=== PATIENT | male | born 1995 | race Caucasian/White ===

== ENCOUNTER 2020-12-09 21:16 | Emergency (ER) | payer OTHER ==
--- NOTE | 2020-12-09 21:33 | ED Physician Documentation ---
PD HPI CHEST PAIN - Stated complaint Stated Complaint: CP - Chief complaint Chief Complaint: Resp - History obtained from History obtained from: Patient - History of Present Illness Timing - onset: How many hours ago (1) Timing - onset during: Rest (was just sitting at home and turned and noted onset sharp pain left anterior chest, worse with movement and breathing. No prior s imilar.) Timing - duration: Hours (1) Timing - details: Abrupt onset, Still present Quality: Aching, Sharp Location: Left chest Radiation: No: Back, Abdominal Improved by: Rest Worsened by: Inspiration, Movement, Palpation Associated symptoms: Shortness of air. No: Nausea, Vomiting, Feeling faint / dizzy, General Weakness Similar symptoms before: Has not had sx before Review of Systems Constitutional: denies: Fever, Chills Nose: denies: Rhinorrhea / runny nose, Congestion Throat: denies: Sore throat Respiratory: denies: Cough GI: denies: Abdominal Pain, Nausea, Vomiting Skin: denies: Rash Neurologic: denies: Generalized weakness, Near syncope, Altered mental status, Headache PD PAST MEDICAL HISTORY - Past Medical History Cardiovascular: None Respiratory: None Neuro: None Endocrine/Autoimmune: None - Present Medications Home Medications: Ambulatory Orders Medication Instructions Recorded Confirmed Ibuprofen [Motrin] 600 mg PO TID PRN #20 tab 12/09/20 tiZANidine [Zanaflex] 4 mg PO Q8H PRN #15 tablet 12/09/20 - Allergies Allergies/Adverse Reactions: Allergies Allergy/AdvReac Type Severity Reaction Status Date / Time amoxicillin Allergy Mild Hives Verified 12/09/20 21:22 - Social History Does the pt smoke?: No Does the pt have substance abuse?: No - Family History Family history: reports: Other (no connective tissue disorders.). denies: Sudden , Aortic aneursym, Aortic dissection PD ED PE NORMAL - Vitals Vital signs reviewed: Yes - General General: Alert and oriented X 3, Well developed/nourished, Other (appears in some discomfort with deep breathing and movement trunk) - HEENT HEENT: Moist mucous membranes, Pharynx benign - Neck Neck: Supple, no meningeal sign, No adenopathy - Cardiac Cardiac: No murmur. No: RRR (bradycardic but regular, which patient says is usual for him (HR 45-55). ) - Respiratory Respiratory: Clear bilaterally, Other (left chestwall tender anterolateral aspect approx ribs 8-9 area. ) - Abdomen Abdomen: Soft, Non tender - Back Back: No CVA TTP - Derm Derm: Normal color, Warm and dry - Extremities Extremities: No tenderness to palpate, No edema, No calf tenderness / cord - Neuro Neuro: Alert and oriented X 3, No motor deficit, Normal speech Results - Vitals Vitals: Vital Signs - 24 hr 12/09/20 12/09/20 21:18 23:13 Temperature 36.2 C L Heart Rate 50 L 52 L Respiratory 12 18 Rate Blood Pressure 128/65 119/69 O2 Saturation 100 100 Oxygen O2 Source Room air - EKG (time done) 21:57 Rate: Rate (enter#) (46) Rhythm: Sinus bradycardia [place]: Normal Intervals: Normal [place] QRS: Normal Ischemia: Normal ST segments, ST elevation c/w repol. No: ST elevation c/w ischemia, ST depression - Labs Labs: Laboratory Tests 12/09/20 12/09/20 12/09/20 22:00 22:00 22:00 WBC 5.7 RBC 4.76 Hgb 13.7 L Hct 41.5 L MCV 87.2 MCH 28.8 MCHC 33.0 RDW 12.7 Plt Count 192 MPV 11.6 H Neut # (Auto) 2.9 Lymph # (Auto) 1.7 [place] # (Auto) 0.8 Eos # (Auto) 0.2 Baso # (Auto) 0.1 Absolute Nucleated RBC 0.00 Nucleated RBC % 0.0 D-Dimer Sodium 140 Potassium 3.6 Chloride 106 Carbon Dioxide 26 Anion Gap 8.0 BUN 16 Creatinine 0.9 Estimated GFR (MDRD) 102 Glucose 98 Calcium 9.1 Total Bilirubin 0.6 AST 33 ALT 38 Alkaline Phosphatase 50 Troponin I High Sens 2.9 B-Natriuretic Peptide Total Protein 7.0 Albumin 4.6 Globulin 2.4 Albumin/Globulin Ratio 1.9 Lipase 33 12/09/20 12/09/20 22:00 22:22 WBC RBC Hgb Hct MCV MCH MCHC RDW Plt Count MPV Neut # (Auto) Lymph # (Auto) [place] # (Auto) Eos # (Auto) Baso # (Auto) Absolute Nucleated RBC Nucleated RBC % D-Dimer 201.0 Sodium Potassium Chloride Carbon Dioxide Anion Gap BUN Creatinine Estimated GFR (MDRD) Glucose Calcium Total Bilirubin AST ALT Alkaline Phosphatase Troponin I High Sens B-Natriuretic Peptide 7 Total Protein Albumin Globulin Albumin/Globulin Ratio Lipase - Rads (name of study) chest xray Radiology: Prelim report reviewed, See rad report PD MEDICAL DECISION MAKING - ED course Complexity details: considered differential (No signs of more significant process on testing. Presume intercostal muscle strain. ), d/w patient Departure - Departure Disposition: 01 Home, Self Care Clinical Impression: Acute chest pain Chest wall muscle strain Qualifiers: Encounter type: initial encounter Qualified Code(s): S29.011A - Strain of muscle and tendon of front wall of thorax, initial encounter Condition: Stable Record reviewed to determine appropriate education?: Yes Instructions: ED Strain Chest Wall Ch Follow-Up: SUSY Simmons [Provider Group] Prescriptions: Ibuprofen [Motrin] 600 mg PO TID PRN #20 tab PRN Reason: Pain tiZANidine [Zanaflex] 4 mg PO Q8H PRN #15 tablet PRN Reason: Spasms Comments: There are no signs of obvious or significant heart or lung processes based on your EKG, chest x-ray, blood test. In particular, no signs of collapsed lung, p neumothorax, aortic injury, heart attack or inflammation, pneumonia, blood clots. It does sound, then, likely to be chest wall muscle strain. I would treat this with anti-inflammatories 3 times a day for the next several days. Heat to the area periodically for spasming and stiffness. You could add tizanidine muscle relaxant if feeling of stiffness or spasm and add Tylenol if needed for pain. Decreased activity for a couple of days and follow-up with your primary care if not better in that timeframe. Forms: Activity restrictions Discharge Date/Time: 12/09/20 23:20
[2020-12-09] MEDS ORDERED: KETOROLAC 30 MG/ML VIAL IVP STA (21:51)
[2020-12-09 22:10] LABS: BASOPHILS # (AUTO) 0.1 10^3/uL (0.0-0.1); BASOPHILS % (AUTO) 1.1 %; EOSINOPHILS # (AUTO) 0.2 10^3/uL (0.0-0.7); HCT - HEMATOCRIT 41.5 % (42.0-52.0); HGB - HEMOGLOBIN 13.7 g/dL (14.0-18.0); LYMPHOCYTES # (AUTO) 1.7 10^3/uL (1.5-3.5); LYMPHOCYTES % (AUTO) 30.2 %; MEAN CORPUSCULAR HEMOGLOBIN 28.8 pg (27.0-31.0); MEAN CORPUSCULAR VOLUME 87.2 fL (80.0-94.0); MEAN PLATELET VOLUME 11.6 fL (7.4-11.4); MONOCYTES # (AUTO) 0.8 10^3/uL (0.0-1.0); MONOCYTES % (AUTO) 14.3 %; NEUTROPHILS # (AUTO) 2.9 10^3/uL (1.5-6.6); NEUTROPHILS % (AUTO) 51.2 %; PLT - PLATELET COUNT 192 10^3/uL (130-450); RED BLOOD COUNT 4.76 10^6/uL (4.70-6.10); RED CELL DISTRIBUTION WIDTH 12.7 % (12.0-15.0); WHITE BLOOD COUNT 5.7 x10^3/uL (4.8-10.8)
[2020-12-09 22:24] LABS: ALBUMIN 4.6 g/dL (3.2-5.5); ALBUMIN/GLOBULIN RATIO 1.9 (1.0-2.2); BILIRUBIN,TOTAL 0.6 mg/dL (0.2-1.0); CALCIUM 9.1 mg/dL (8.5-10.3); CREATININE 0.9 mg/dL (0.6-1.2); POTASSIUM 3.6 mmol/L (3.5-5.0)
[2020-12-09] MEDS ORDERED: ACETAMINOPHEN 325 MG TABLET PO STA (23:03)
[2020-12-09 23:14] VITALS: BP 119/69
--- NOTE | 2020-12-10 09:49 | XRAY Report ---
PROCEDURE: Chest 1 View X-Ray INDICATIONS: Chest Pain TECHNIQUE: One view of the chest was acquired. COMPARISON: None FINDINGS: Surgical changes and devices: None. Lungs and pleura: No pleural effusions or pneumothorax. Lungs are clear. Mediastinum: Mediastinal contours appear normal. Heart size is normal. Bones and chest wall: No suspicious bony lesions. Overlying soft tissues appear unremarkable. IMPRESSION: No acute pulmonary process. The above findings are concordant with preliminary report. Reviewed by: Rosey Rodrigues MD on 12/10/2020 9:47 AM PDT Approved by: Rosey Rodrigues MD on 12/10/2020 9:47 AM PDT Station ID: [id number]
== END 2020-12-09 23:20 | disposition home or self-care (01) ==
LOC: ED 21:16
DX: S29.011A Strain of muscle and tendon of front wall of thorax, initial encounter (principal); X58.XXXA Exposure to other specified factors, initial encounter; Y92.009 Unspecified place in unspecified non-institutional (private) residence as the place of occurrence of the external cause; R00.1 Bradycardia, unspecified
CPT/HCPCS: 36415; 71045; 80053; 83690; 83880; 84484; 85025; 85379; 93005; 96374; 99284; A9270